=== PATIENT | male | born 1960 | race Caucasian/White ===

== ENCOUNTER 2019-12-01 12:06 | Emergency (ER) | payer MEDICAID ==
[~2019-12-01] VITALS: Ht 190.5 cm; Wt 96.2 kg
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
--- NOTE | 2019-12-01 12:38 | NUR ---
ED Nurse Note: X-ray at bedside.
--- NOTE | 2019-12-01 13:09 | Diagnostic Imaging Report ---
Indication: Right foot pain Technique: 3 views right foot Comparison: none Findings: There is some irregularity of the fifth distal interphalangeal joint. No acute fractures. No dislocations. The remaining joint spaces are preserved. 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
--- NOTE | 2019-12-01 13:10 | Diagnostic Imaging Report ---
Clinical Indication:Wrist pain Technique: 3 views of the left wrist Comparison: None Findings: No acute fractures. No dislocations. The joint spaces are preserved. Impression: Negative
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
--- NOTE | 2019-12-01 13:23 | NUR ---
ED Nurse Note: Dr. Dubon at bedside.
[2019-12-01] MEDS ORDERED: IBUPROFEN600 M1 ORAL (13:28)
[2019-12-01] MEDS ORDERED: ROBAXIN-750750 MG PO (13:28)
[2019-12-01 13:30] VITALS: BP 141/83
--- NOTE | 2019-12-01 13:30 | NUR ---
ED Nurse Note: ER DISCHARGE NOTE: Patient is cleared to be discharged per Dr. Dubon, pt is aox4, on room air, with stable vital signs. pt was given dc and prescription instructions, pt was able to verbalize understanding, pt id band removed. pt is able to ambulate with steady gait. pt took all belongings.
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
== END 2019-12-01 13:30 | disposition home or self-care (01) ==
LOC: EMR 12:50
DX: M25.532 Pain in left wrist (principal); M25.531 Pain in right wrist; M25.571 Pain in right ankle and joints of right foot; M25.541 Pain in joints of right hand
CPT/HCPCS: 73110; 73130; 73630; Z7502; 99284